=== PATIENT | male | born 1980 | race Two or more races ===

== ENCOUNTER 2018-05-18 12:41 | Emergency (ER) | payer SELFPAY ==
[~2018-05-18] VITALS: Ht 177.8 cm; Wt 90.0 kg
[2018-05-18] MEDS ORDERED: LORAZEPAM 2MG/ML CPJ IV STA (13:10)
[2018-05-18] MEDS ORDERED: OLANZAPINE 10 MG/VIAL IM STA (13:10)
[2018-05-18] MEDS ORDERED: SODIUM CHLORIDE 0.9% 1,000 ML IV ONE (13:15)
[2018-05-18 13:59] LABS: CLARITY URINE CLEAR (CLEAR); COLOR URINE YELLOW (YELLOW); KETONES URINE NEGATIVE (NEGATIVE); LEUKOCYTE ESTERASE URINE NEGATIVE (NEGATIVE); NITRITE URINE NEGATIVE (NEGATIVE); OCCULT BLOOD URINE NEGATIVE (NEGATIVE); PROTEIN URINE NEGATIVE (NEGATIVE); SPECIFIC GRAVITY URINE 1.003 (1.005-1.030); UROBILINOGEN URINE 0.2 E.U./dL (0.2-1.0)
[2018-05-18 14:28] LABS: CHLORIDE 111 mEq/L (98-107)
[2018-05-18 14:30] LABS: *AMPHETAMINES SCREEN URINE NEGATIVE (NEGATIVE); *BARBITURATES SCREEN URINE NEGATIVE (NEGATIVE); *BENZODIAZEPINES SCREEN URINE NEGATIVE (NEGATIVE); *COCAINE SCREEN URINE NEGATIVE (NEGATIVE); METHADONE URINE SCREEN NEGATIVE (NEGATIVE); OPIATES URINE SCREEN NEGATIVE (NEGATIVE)
[2018-05-18 14:30] LABS: EOSINOPHILS % 0.2 % (0.0-5.0); HEMATOCRIT. 46.5 % (42.0-52.0); HEMOGLOBIN. 16.3 g/dL (14.0-18.0); LYMPHOCYTES % 30.8 % (20.0-50.0); MEAN CORPUSCULAR HEMOGLOBIN 34.2 pg (28.0-32.0); MEAN CORPUSCULAR VOLUME 97.5 fL (80.0-94.0); MEAN PLATELET VOLUME 7.9 fl (7.4-10.4); MONOCYTES % 7.5 % (2.0-8.0); NEUTROPHILS % 60.5 % (40.0-76.0); PLATELET 223 x1000/uL (130-400); RED BLOOD CELL COUNT 4.77 mill/uL (4.7-6.1)
[2018-05-18 14:31] LABS: CANNABINOID URINE SCREEN PRESUMTIVE POSITIVE (NEGATIVE); PHENCYCLIDINE URINE SCREEN NEGATIVE (NEGATIVE)
[2018-05-18 14:32] LABS: ETHANOL BLOOD 153 mg/dL
[2018-05-18] MEDS ORDERED: LORAZEPAM 2MG/ML CPJ IM ONE ×3 (15:30→19:45)
[2018-05-18] MEDS ORDERED: ZIPRASIDONE MESYLATE 20MG/VIAL IM ONE (16:45)
[2018-05-18] MEDS ORDERED: QUETIAPINE FUMARATE 100MG TABLET PO SCH (20:00)
[2018-05-18] MEDS ORDERED: OLANZAPINE 5MG TABLET ODT PO ONE (20:15)
[2018-05-18] MEDS ORDERED: LORAZEPAM 1MG TABLET PO ONE (21:45)
[2018-05-19] MEDS ORDERED: GABAPENTIN 300MG CAPSULE PO ONE (02:30)
[2018-05-19] MEDS ORDERED: LORAZEPAM 1MG TABLET PO NR (02:45)
[2018-05-19 08:03] VITALS: BP 148/106
[2018-05-19] MEDS ORDERED: OLANZAPINE 5MG TABLET ODT PO ONE (09:15)
== END 2018-05-19 14:28 | disposition home or self-care (01) ==
LOC: ER 12:41
DX: T51.0X1A Toxic effect of ethanol, accidental (unintentional), initial encounter (principal); T40.7X1A Poisoning by cannabis (derivatives), accidental (unintentional), initial encounter; G93.40 Encephalopathy, unspecified; F23 Brief psychotic disorder; Y92.89 Other specified places as the place of occurrence of the external cause
CPT/HCPCS: 36415; 80053; 80305; 80320; 81003; 85025; 96372; 96374; 99284; J2060; J3486; J3490; J7030; G0480

== ENCOUNTER 2019-01-27 20:43 | Emergency (ER) | payer MEDICAID ==
[~2019-01-27] VITALS: Ht 175.3 cm; Wt 77.0 kg
[2019-01-27 23:08] LABS: BASOPHILS % 0.6 % (0.0-2.0); HEMATOCRIT. 40.6 % (42.0-52.0); HEMOGLOBIN. 14.2 g/dL (14.0-18.0); LYMPHOCYTES % 39.2 % (20.0-50.0); MEAN CORPUSCULAR VOLUME 97.2 fL (80.0-94.0); MEAN PLATELET VOLUME 7.2 fl (7.4-10.4); MONOCYTES % 11.4 % (2.0-8.0); NEUTROPHILS % 45.8 % (40.0-76.0); PLATELET 303 x1000/uL (130-400); RED BLOOD CELL COUNT 4.18 mill/uL (4.7-6.1)
[2019-01-27 23:13] LABS: CHLORIDE 108 mEq/L (98-107)
[2019-01-27 23:17] LABS: ETHANOL BLOOD 86 mg/dL
[2019-01-27 23:32] LABS: CLARITY URINE CLEAR (CLEAR); COLOR URINE YELLOW (YELLOW); KETONES URINE TRACE (NEGATIVE); LEUKOCYTE ESTERASE URINE NEGATIVE (NEGATIVE); NITRITE URINE NEGATIVE (NEGATIVE); OCCULT BLOOD URINE NEGATIVE (NEGATIVE); PH URINE 5.5 (4.5-8.0); PROTEIN URINE NEGATIVE (NEGATIVE); SPECIFIC GRAVITY URINE 1.021 (1.005-1.030)
[2019-01-27] MEDS ORDERED: OLANZAPINE 10MG TABLET PO SCH (23:45)
[2019-01-27 23:55] LABS: *AMPHETAMINES SCREEN URINE PRESUMTIVE POSITIVE (NEGATIVE); CANNABINOID URINE SCREEN PRESUMTIVE POSITIVE (NEGATIVE)
[2019-01-27 23:56] LABS: *BARBITURATES SCREEN URINE NEGATIVE (NEGATIVE); *BENZODIAZEPINES SCREEN URINE NEGATIVE (NEGATIVE); *COCAINE SCREEN URINE NEGATIVE (NEGATIVE); METHADONE URINE SCREEN NEGATIVE (NEGATIVE); OPIATES URINE SCREEN PRESUMTIVE POSITIVE (NEGATIVE); PHENCYCLIDINE URINE SCREEN NEGATIVE (NEGATIVE)
[2019-01-28 04:00] VITALS: BP 120/81
== END 2019-01-28 07:30 | disposition left against medical advice (07) ==
LOC: ER 20:43
DX: R45.851 Suicidal ideations (principal); F31.9 Bipolar disorder, unspecified; F20.9 Schizophrenia, unspecified
CPT/HCPCS: 36415; 80305; 80307; 80320; 81003; 99283; 99284; G0480